=== PATIENT | female | born 1980 | race Two or more races ===

== ENCOUNTER 2022-04-06 17:28 | Emergency (ER) | payer OTHER ==
[~2022-04-06] VITALS: Ht 167.6 cm; Wt 117.5 kg
[2022-04-06] MEDS ORDERED: NOVOLOG FL100 UNIT/1 SQ (18:10)
[2022-04-06] MEDS ORDERED: TRESIBA FL100 UNIT/1 SQ (18:10)
[2022-04-06] MEDS ORDERED: MONTELUKAST SOD10 MG PO (18:10)
[2022-04-06] MEDS ORDERED: LEVOTHYROXINE50 MCG PO (18:10)
[2022-04-06] MEDS ORDERED: OZEMPIC1 MG/0.71 SQ (18:11)
[2022-04-06] MEDS ORDERED: MEDROLPACK PO (20:49)
== END 2022-04-06 21:33 | disposition home or self-care (01) ==
LOC: ER 17:28
DX: G56.00 Carpal tunnel syndrome, unspecified upper limb (principal); M79.641 Pain in right hand; Z88.0 Allergy status to penicillin; Z88.1 Allergy status to other antibiotic agents; E03.9 Hypothyroidism, unspecified; E11.9 Type 2 diabetes mellitus without complications; Z79.4 Long term (current) use of insulin